=== PATIENT | female | born 1990 | race African-American/Black ===

== ENCOUNTER 2025-06-14 22:52 | Emergency (ER) | payer OTHER, BC ==
[~2025-06-14] VITALS: Ht 170.2 cm; Wt 106.0 kg
[2025-06-14 23:22] VITALS: TEMP 36.8; O2SAT 99
[2025-06-15] MEDS: KETOROLAC 15MG/ML VIAL IM ONE (03:02)
[2025-06-15] MEDS ORDERED: LIDO-53 TP (03:50)
[2025-06-15] MEDS ORDERED: NAPR-1176 MT (03:50)
[2025-06-15 03:58] VITALS: BP 128/84; PULSE 80; RESP 18; O2SAT 100
== END 2025-06-15 03:59 | disposition home or self-care (01) ==
LOC: ER 23:01
DX: M54.50 Low back pain, unspecified (principal); Z79.899 Other long term (current) drug therapy; Z79.1 Long term (current) use of non-steroidal anti-inflammatories (NSAID); V89.2XXA Person injured in unspecified motor-vehicle accident, traffic, initial encounter; Y93.89 Activity, other specified; Y92.410 Unspecified street and highway as the place of occurrence of the external cause; Y99.8 Other external cause status
CPT/HCPCS: 99283; 96372; J1885; Z7610